=== PATIENT | female | born 1975 | race Caucasian/White ===

== ENCOUNTER 2023-12-14 16:42 | Emergency (ER) | payer MEDICAID ==
[~2023-12-14] VITALS: Ht 172.7 cm; Wt 100.0 kg
[~2023-12-14 16:42] MED LIST: DIPH25CA83 PO; EPIN0.3A3 SQ; FAMO-128 PO; THY60T PO
[2023-12-14 16:46] VITALS: BP 125/85; PULSE 89; RESP 16; TEMP 96.5; O2SAT 96
[2023-12-14] MEDS ORDERED: CLAR-36 PO (17:34)
== END 2023-12-14 17:43 | disposition home or self-care (01) ==
LOC: ER 16:42
DX: J01.90 Acute sinusitis, unspecified (principal); H66.93 Otitis media, unspecified, bilateral; Z88.0 Allergy status to penicillin; Z79.2 Long term (current) use of antibiotics; Z79.899 Other long term (current) drug therapy; Z90.49 Acquired absence of other specified parts of digestive tract
CPT/HCPCS: 99283